=== PATIENT | male | born 1990 | race Caucasian/White ===

== ENCOUNTER → 2018-06-27 | Outpatient (CLI) | payer OTHER ==
[~2018-06-27] MED LIST: NO HOME MEDICATIONS; VICODIN 5/5001 UDTAB PO
== END ==
LOC: COL.RAD 11:26
DX: S83.412D Sprain of medial collateral ligament of left knee, subsequent encounter (principal); M71.22 Synovial cyst of popliteal space [Baker], left knee; M25.462 Effusion, left knee; M24.10 Other articular cartilage disorders, unspecified site

== ENCOUNTER 2018-07-03 14:09 | Outpatient (RCR) | payer OTHER | END 2018-08-29 | disposition home or self-care (01) | LOC: WSOH | DX: S83.412A Sprain of medial collateral ligament of left knee, initial encounter (principal); X50.0XXA Overexertion from strenuous movement or load, initial encounter; Y93.72 Activity, wrestling; Y92.219 Unspecified school as the place of occurrence of the external cause; Y99.0 Civilian activity done for income or pay | CPT/HCPCS: 24774; L1810 ==

== ENCOUNTER 2018-09-03 19:40 | Observation (INO) | payer BC ==
[~2018-09-03] VITALS: Ht 165.1 cm; Wt 99.8 kg
[2018-09-03 20:42] LABS: COLLECTION METHOD CLEAN CATCH
[2018-09-03 20:57] LABS: BASO # 0.1 (0.0-0.2); BASO % 0.5 % (0.0-2.0); EOS # 0.2 (0.0-0.7); EOS % 2.1 % (0-4.0); GRAN # 8.4 (1.4-6.5); HEMATOCRIT 45.1 % (42.0-52.0); HEMOGLOBIN 15.8 g/dl (13.5-18.0); LYMPH # 1.7 (1.2-3.4); LYMPH % 15.3 % (20.0-51.0); MEAN CELL VOLUME 85 fl (80.0-100.0); MEAN CORPUSCULAR HEMOGLOBIN 30 pg (27.0-31.0); MEAN CORPUSCULAR HGB CONC 35 g/dl (33.0-37.0); MEAN PLATELET VOLUME 10.7 fl (7.4-10.4); MONO # 0.7 (0.1-0.6); MONO % 5.9 % (1.7-9.3); PLATELET COUNT 258 K/mm3 (130-400); RED BLOOD COUNT 5.34 M/mm3 (4.20-5.60)
[2018-09-03 21:05] LABS: ALBUMIN 4.3 gm/dL (3.5-5.0); BILIRUBIN,TOTAL 0.6 mg/dL (0.0-1.0); C-REACTIVE PROTEIN 0.6 mg/dL (0.0-0.9); CALCIUM 9.1 mg/dL (8.4-10.2); CREATININE, serum 0.99 (0.66-1.25); POTASSIUM 3.9 mmol/L (3.4-5.0); TOTAL PROTEIN 7.2 gm/dL (6.4-8.2)
[2018-09-03 21:06] LABS: AMORPHOUS CRYSTAL Present /uL; MUCOUS Present /lpf; PH 6 (5-8); SQUAMOUS EPITHELIAL None Seen /hpf; URINE APPEARANCE Clear; URINE BACTERIA Rare /hpf; URINE BILIRUBIN Negative (NEGATIVE); URINE BLOOD Negative (NEGATIVE); URINE COLOR Yellow; URINE GLUCOSE Negative (NEGATIVE); URINE KETONE Negative (NEGATIVE); URINE LEUKOCYTE ESTERASE Negative (NEGATIVE); URINE NITRATE Negative (NEGATIVE); URINE PROTEIN(semi-quant) Negative (NEGATIVE); URINE RBC 0-2 /hpf; URINE UROBILINOGEN Negative (NEGATIVE)
[2018-09-04] VITALS (11 sets, daily range): BP systolic 110–135; BP diastolic 53–66; PULSE 46–53; TEMP 97.7–98.2
--- NOTE | 2018-09-04 07:03 | NUR ---
Patient report given to EVELIN Beyer. Patient resting comfortably in bed. Denies needs.
[2018-09-04 07:33] LABS: BASO % 0.3 % (0.0-2.0); EOS # 0.3 (0.0-0.7); EOS % 3.9 % (0-4.0); GRAN # 4.8 (1.4-6.5); HEMATOCRIT 41.1 % (42.0-52.0); HEMOGLOBIN 14.2 g/dl (13.5-18.0); LYMPH # 1.8 (1.2-3.4); LYMPH % 24.2 % (20.0-51.0); MEAN CELL VOLUME 86 fl (80.0-100.0); MEAN CORPUSCULAR HEMOGLOBIN 30 pg (27.0-31.0); MEAN CORPUSCULAR HGB CONC 35 g/dl (33.0-37.0); MONO # 0.6 (0.1-0.6); MONO % 7.3 % (1.7-9.3); PLATELET COUNT 229 K/mm3 (130-400); REDCELL DISTRIBUTION WIDTH-CV 13.2 % (11.5-14.5)
[2018-09-04 07:43] LABS: ALBUMIN 3.5 gm/dL (3.5-5.0); BILIRUBIN,TOTAL 0.5 mg/dL (0.0-1.0); CALCIUM 8.4 mg/dL (8.4-10.2); POTASSIUM 3.9 mmol/L (3.4-5.0)
--- NOTE | 2018-09-04 10:38 | NUR ---
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 No needs right now.
--- NOTE | 2018-09-04 11:06 | NUR ---
SW met with the patient to discuss discharge plan. The patient lives in [place] with a roommate. He reports independence with ADLs and does not use any DME. The patient's PCP is Dr. Magalie Mustafa and he receives his medications at the [facility]. He reports no difficulties obtaining his meds. The patient plans to return home upon discharge. No additional needs at this time.
--- NOTE | 2018-09-04 11:28 | NUR ---
Chlorhexadine shower completed.
--- NOTE | 2018-09-04 18:51 | NUR ---
Patient returns from PACU, assessment unchanged except for abdomen with lap sites x4, edges well approximated, no drainage noted. Abdomen soft, non tender, non distended. Bowel sounds hypoactive. No c/o pain or discomfort.
[2018-09-05 00:45] VITALS: BP 113/60; PULSE 54; TEMP 98.8
--- NOTE | 2018-09-05 01:26 | NUR ---
Patient stated he was in pain when this nurse arrived on shift. Oral pain medication given and noted to be uneffective. Patient stated he wanted to stay and get something stronger for the pain. PRN Dilaudid given. This was noted to be effective. Patient states his pain is definitely a lot better. Noted to ambulate around the unit with his girlfriend several times. Ate a sandwich, applesauce, a chocolate chip cookie, and some pudding. Drank a sprite. No nausea noted with eating. Discharge paperwork completed and is all ready for him to go in the morning. Will continue to monitor for pain.
[2018-09-05 03:20] VITALS: BP 110/45; PULSE 60; TEMP 98.7
--- NOTE | 2018-09-05 05:00 | NUR ---
Patient has rested well throughout the night. Fluids capped d/t tolerating PO fluids well. Girlfriend at bedside throughout the night. Will continue to monitor.
--- NOTE | 2018-09-05 06:40 | NUR ---
appears to be dozing but awakens easily, bedside shift report received from EVELIN Martin
--- NOTE | 2018-09-05 07:00 | NUR ---
Report given to EVELIN Julien.
--- NOTE | 2018-09-05 07:10 | NUR ---
ambulating in [place] to nurses station and asking about going home, Dr Antony notified and will discharge
[2018-09-05 07:20] VITALS: BP 118/59; PULSE 61; TEMP 98
--- NOTE | 2018-09-05 07:25 | NUR ---
discharge instructions given to patient and his , verbalizes understanding
--- NOTE | 2018-09-05 07:32 | NUR ---
discharged ambulatory
== END 2018-09-05 07:33 | disposition home or self-care (01) ==
LOC: COL.ER 19:40 → SURG 23:25
PROVIDERS: Nurse Practitioner; ADMIT Surgery
DX: K80.10 Calculus of gallbladder with chronic cholecystitis without obstruction (principal); K85.90 Acute pancreatitis without necrosis or infection, unspecified
CPT/HCPCS: G0378; J1100; J1170; J1956; J2405; J2704; J2710; J2765; J3010; J7030; J7120; Q9967